=== PATIENT | male | born 1975 | race Caucasian/White ===

== ENCOUNTER 2017-06-07 13:59 | Emergency (ER) | payer OTHER ==
[~2017-06-07] VITALS: Ht 165.1 cm; Wt 70.0 kg
[2017-06-07 18:53] VITALS: BP 140/86
== END 2017-06-07 18:53 | disposition home or self-care (01) ==
LOC: ED 13:59
DX: S20.211A Contusion of right front wall of thorax, initial encounter (principal); W50.0XXA Accidental hit or strike by another person, initial encounter; Y93.64 Activity, baseball; Y99.8 Other external cause status; Y92.89 Other specified places as the place of occurrence of the external cause

== ENCOUNTER 2018-04-25 12:58 | Emergency (ER) | payer OTHER ==
[~2018-04-25] VITALS: Ht 165.1 cm; Wt 70.8 kg
[2018-04-25 13:01] VITALS: Ht 165.1 cm; Wt 70.8 kg
[2018-04-25 13:52] LABS: BASOPHIL % 1.7 % (0-2); PLATELET COUNT 225 x10^3mcL (130-400); RED CELL DISTRIBUTION WIDTH 13.4 % (11.5-14.5)
[2018-04-25 13:56] LABS: CALCIUM 8.4 mg/dL (8.5-10.1); CARBON DIOXIDE 24.7 mmol/L (21-32); CHLORIDE SERUM 105 mmol/L (98-107); CREATININE SERUM 0.7 mg/dL (0.7-1.3); GFR1 > 60 mL/min; GLUCOSE SERUM 90 mg/dL (74-106); POTASSIUM SERUM 3.9 mmol/L (3.5-5.1); SODIUM SERUM 141 mmol/L (136-145)
[2018-04-25 14:01] LABS: ALBUMIN 3.6 g/dL (3.4-5.0); ALKALINE PHOSPHATASE 81 U/L (46-116); ALT/SGPT 24 U/L (16-63); AST/SGOT 32 U/L (15-37); BILIRUBIN TOTAL 0.9 mg/dL (0.20-1.00); TOTAL PROTEIN, SERUM 7.2 g/dL (6.4-8.2)
[2018-04-25 16:13] VITALS: BP 130/58
== END 2018-04-25 16:13 | disposition home or self-care (01) ==
LOC: ED 12:58
PROVIDERS: Emergency Medicine
DX: J44.1 Chronic obstructive pulmonary disease with (acute) exacerbation (principal); I10 Essential (primary) hypertension; K21.9 Gastro-esophageal reflux disease without esophagitis
CPT/HCPCS: 83880; J1885; J2930; J7613

== ENCOUNTER 2020-06-11 11:43 | Emergency (ER) | payer SELFPAY ==
[~2020-06-11] VITALS: Ht 165.1 cm; Wt 65.8 kg
[2020-06-11 12:11] VITALS: Ht 165.1 cm; Wt 65.8 kg
[2020-06-11 14:15] VITALS: BP 104/66
== END 2020-06-11 14:15 | disposition home or self-care (01) ==
LOC: ED 11:43
DX: R42 Dizziness and giddiness (principal); I10 Essential (primary) hypertension; M25.561 Pain in right knee; V49.9XXD Car occupant (driver) (passenger) injured in unspecified traffic accident, subsequent encounter
CPT/HCPCS: J8597